=== PATIENT | female | born 1990 | race Caucasian/White ===

== ENCOUNTER 2017-02-11 12:56 | Inpatient (IN) | payer OTHER ==
[~2017-02-11] VITALS: Ht 157.5 cm; Wt 86.7 kg
[2017-02-11 13:45] LABS: BASOPHIL % 0.5 % (0-2); PLATELET COUNT 276 x10^3mcL (130-400)
[2017-02-11 13:49] LABS: CALCIUM 9.2 mg/dL (8.5-10.1); CARBON DIOXIDE 25.2 mmol/L (21-32); CHLORIDE SERUM 105 mmol/L (98-107); CREATININE SERUM 0.7 mg/dL (0.6-1.0); GFR1 > 60 mL/min; GLUCOSE SERUM 125 mg/dL (74-106); POTASSIUM SERUM 3.3 mmol/L (3.5-5.1); SODIUM SERUM 141 mmol/L (136-145)
[2017-02-11 13:53] LABS: ALBUMIN 3.8 g/dL (3.4-5.0); ALKALINE PHOSPHATASE 58 U/L (46-116); ALT/SGPT 14 U/L (14-59); AST/SGOT 9 U/L (15-37); BILIRUBIN TOTAL 0.3 mg/dL (0.20-1.00); CHOLESTEROL 110 mg/dL (<200); CHOLESTEROL/HDL RATIO 2.8; HDL CHOLESTEROL 39 mg/dL (40-60); LIPASE 132 IU/L (73-393); RED CELL DISTRIBUTION WIDTH 17.2 % (11.5-14.5); TOTAL PROTEIN, SERUM 7.2 g/dL (6.4-8.2); TRIGLYCERIDES 52 mg/dL (<150)
[2017-02-11 14:08] LABS: FREE T4 1.24 ng/dL (0.76-1.46); FREE THYROXINE INDEX 2.9 ug/dL (1.4-4.5); T4(THYROXINE) 8.4 ug/dL (4.7-13.3)
[2017-02-11 14:09] LABS: T3 TOTAL 1.05 ng/mL
[2017-02-11 14:31] LABS: UA SPECIFIC GRAVITY >=1.030 (1.005-1.035); microscopic required? YES; urine erythrocyte 3+ (NEGATIVE)
[2017-02-11 16:12] VITALS: BP 122/74
[2017-02-11] MEDS ORDERED: ZYRTEC10 MG PO (18:39)
[2017-02-11] MEDS ORDERED: EPIPEN AUT0.3 MG/0.3 MR (18:41)
[2017-02-11] MEDS ORDERED: MEDROL8 MG PO (18:47)
== END 2017-02-11 19:00 | disposition left against medical advice (07) | DRG 811 ==
LOC: ED 12:56 → DU 14:06
PROVIDERS: Specialist; ADMIT Family Medicine
DX: T78.2XXA Anaphylactic shock, unspecified, initial encounter (principal)
CPT/HCPCS: 83880; 84439; J0171; J1200; J2930; J3490; J7030; Q0092; Q0163

== ENCOUNTER 2019-01-23 02:29 | Emergency (ER) | payer OTHER ==
[~2019-01-23] VITALS: Ht 157.5 cm; Wt 74.8 kg
[~2019-01-23 02:29] MED LIST: EPIPEN AUT0.3 MG/0.3 MR; MEDROL8 MG PO; ZYRTEC10 MG PO
[2019-01-23 02:32] VITALS: Ht 157.5 cm; Wt 74.8 kg
[2019-01-23 03:46] VITALS: BP 129/81
== END 2019-01-23 04:01 | disposition home or self-care (01) ==
LOC: ED 02:29
DX: K04.7 Periapical abscess without sinus (principal)
CPT/HCPCS: J1885; J2001; J3490